=== PATIENT | male | born 1970 | race Caucasian/White ===

== ENCOUNTER 2019-03-19 19:13 | Emergency (ER) | payer BC ==
[~2019-03-19] VITALS: Ht 165.1 cm; Wt 72.7 kg
[2019-03-19] MEDS ORDERED: IBUP-1022 PO (19:26)
[2019-03-19] MEDS ORDERED: ACETAMINOPHEN TAB 650MG DOSE (2X325MG) PO ONE (20:30)
[2019-03-19 20:46] LABS: HEMATOCRIT 42.1 % (42.0-52.0); HEMOGLOBIN 14.1 g/dl (13.5-17.5); MEAN CORPUSCULAR HEMOGLOBIN 30.7 pg (27.0-33.0); MEAN CORPUSCULAR HGB CONC 33.5 g/dl (32.0-36.5); MEAN CORPUSCULAR VOLUME 91.5 fl (80.0-96.0); PLATELET COUNT, AUTOMATED 217 10^3/uL (150-450); WHITE BLOOD COUNT 13.1 10^3/uL (4.0-10.0)
[2019-03-19 21:04] LABS: C REACTIVE PROTEIN QUANTITATIV 0.32 MG/DL (0.00-0.30); URIC ACID 5.3 MG/DL (3.5-7.2)
[2019-03-19 21:35] LABS: ERYTHROCYTE SEDIMENTATION RATE 9 mm/hr (0-20)
[2019-03-19 22:20] VITALS: BP 127/83
[2019-03-19] MEDS ORDERED: KEFL500C17 PO (23:06)
[2019-03-19] MEDS ORDERED: CEPHALEXIN 500 MG CAP PO ONE (23:15)
--- NOTE | 2019-03-20 07:30 | REP ---
RIGHT ELBOW, FOUR VIEWS: There is no evidence of an acute fracture, dislocation or intrinsic bone disease. IMPRESSION: No fracture or dislocation. Electronically Signed by Marlon Villa MD 03/20/2019 09:23 A
== END 2019-03-19 23:16 | disposition home or self-care (01) ==
LOC: M ED 19:13
DX: M71.521 Other bursitis, not elsewhere classified, right elbow (principal)

== ENCOUNTER → 2021-08-16 | Outpatient (CLI) | payer BC ==
[~2021-08-16] MED LIST: IBUP-1022 PO; KEFL500C17 PO
== END ==
LOC: M OUTALCOH 07:59
PROVIDERS: ATTEND Psychiatry & Neurology Psychiatry
DX: F10.10 Alcohol abuse, uncomplicated (principal)

== ENCOUNTER 2021-08-29 16:00 | Outpatient (RCR) | payer BC | END 2021-08-30 | LOC: M OUTALCOH 16:00 | PROVIDERS: ATTEND Psychiatry & Neurology Psychiatry | DX: F10.10 Alcohol abuse, uncomplicated (principal) ==

== ENCOUNTER 2021-09-27 15:00 | Outpatient (RCR) | payer BC | END 2021-09-30 | LOC: M OUTALCOH 15:00 | PROVIDERS: ATTEND Psychiatry & Neurology Psychiatry | DX: F10.10 Alcohol abuse, uncomplicated (principal) ==

== ENCOUNTER → 2021-10-31 | Outpatient (RCR) | payer BC, OTHER | LOC: M OUTALCOH 10-04 17:10 | PROVIDERS: ATTEND Psychiatry & Neurology Psychiatry | DX: F10.10 Alcohol abuse, uncomplicated (principal) ==

== ENCOUNTER 2021-11-11 14:41 | Outpatient (RCR) | payer OTHER | END 2021-11-28 | LOC: M OUTALCOH 14:41 | PROVIDERS: ATTEND Psychiatry & Neurology Psychiatry | DX: F10.10 Alcohol abuse, uncomplicated (principal) ==

== ENCOUNTER 2023-09-19 08:58 | Day surgery (SDC) | payer OTHER ==
[~2023-09-19] VITALS: Ht 165.1 cm; Wt 73.8 kg
[~2023-09-19 08:58] MED LIST changes: +NS 1,000 ML IV ONE
[2023-09-19] MEDS ORDERED: propofoL 200 MG/20 ML VIAL As Ordered ONE (10:15)
[2023-09-19 10:45] VITALS: BP 131/79; O2SAT 96
== END 2023-09-19 10:53 | disposition home or self-care (01) ==
LOC: M OPP 08:58
PROVIDERS: ATTEND Surgery
DX: Z12.11 Encounter for screening for malignant neoplasm of colon (principal); D12.2 Benign neoplasm of ascending colon

== ENCOUNTER → 2024-01-03 | Outpatient (REF) | payer OTHER ==
[~2024-01-03] MED LIST changes: -NS 1,000 ML IV ONE
== END ==
LOC: M LAB REF 16:38
PROVIDERS: ATTEND Physician Assistant Medical
DX: N50.819 Testicular pain, unspecified (principal)

== ENCOUNTER → 2024-01-04 | Outpatient (CLI) | payer OTHER | LOC: M RAD 07:41 | PROVIDERS: ATTEND Physician Assistant Medical | DX: N50.89 Other specified disorders of the male genital organs (principal) ==